=== PATIENT | male | born 1980 | race Caucasian/White ===

== ENCOUNTER 2016-11-15 01:33 | Inpatient (IN) | payer BC ==
[~2016-11-15] VITALS: Ht 188 cm; Wt 65.8 kg
[2016-11-15] VITALS (7 sets, daily range): BP systolic 93–103; RESP 16; TEMP 97.7–98.7; Ht 188 cm; Wt 65.8 kg
[2016-11-15] MEDS ORDERED: SALINE FLUSH 10 ML FLUSH PRN (02:00)
[2016-11-15] MEDS ORDERED: PHARMACY TO DOSE LEVAQUIN IV SCH ×2 (02:00→02:10)
[2016-11-15] MEDS ORDERED: ONDANSETRON 4 MG VIAL IV PRN (02:00)
[2016-11-15] MEDS: SODIUM CHLORIDE 0.9% 1,000 ML IV SCH ×3 (04:32→23:27)
[2016-11-15] MEDS: MORPHINE 2 MG/ML SYR IV PRN ×4 (04:42→23:27)
[2016-11-15] MEDS: SODIUM CHLORIDE 0.9% FLUSH BAG 500 ML IV SCH (05:18)
[2016-11-15] MEDS: LEVOFLOXACIN 750 MG/150 ML 150 ML IV SCH (05:51)
[2016-11-15] MEDS: METRONIDAZOLE 500MG/100ML 100 ML IV SCH ×4 (07:39→23:23)
[2016-11-15] MEDS: SALINE FLUSH 10 ML FLUSH SCH ×2 (07:40→20:00)
[2016-11-15] MEDS ORDERED: Flu Vaccine Quadrivalent 60 MCG/0.5 ML IM.VACC ONE (08:00)
[2016-11-15] MEDS: AZATHIOPRINE 50 MG TAB PO SCH (08:59)
[2016-11-15] MEDS: METHYLPRED SOD SUCC 40 MG VIAL IV SCH ×2 (08:59→20:45)
[2016-11-15] MEDS: PANTOPRAZOLE 40 MG VIAL IV SCH (10:00)
[2016-11-15] MEDS ORDERED: ACETAMINOPHEN 325 MG TAB PO PRN (12:10)
[2016-11-15] MEDS ORDERED: SERTRALINE 100 MG TAB PO SCH (21:00)
[2016-11-16] MEDS: SODIUM CHLORIDE 0.9% FLUSH BAG 500 ML IV SCH (00:40)
[2016-11-16 03:32] VITALS: BP_SYST 95; RESP 16; TEMP 97.9
[2016-11-16] MEDS: METRONIDAZOLE 500MG/100ML 100 ML IV SCH (06:14)
[2016-11-16 07:00] VITALS: BP_SYST 99; RESP 16; TEMP 97.7
[2016-11-16] MEDS: SALINE FLUSH 10 ML FLUSH SCH (07:47)
[2016-11-16] MEDS: AZATHIOPRINE 50 MG TAB PO SCH (08:32)
[2016-11-16] MEDS: METHYLPRED SOD SUCC 40 MG VIAL IV SCH (08:32)
[2016-11-16] MEDS: MORPHINE 2 MG/ML SYR IV PRN (08:33)
[2016-11-16] MEDS: LEVOFLOXACIN 750 MG/150 ML 150 ML IV SCH (08:36)
[2016-11-16] MEDS: PANTOPRAZOLE 40 MG VIAL IV SCH (09:43)
[2016-11-16] MEDS: SODIUM CHLORIDE 0.9% 1,000 ML IV SCH (10:12)
[2016-11-16] MEDS ORDERED: OXYCODONE 5 MG TAB PO PRN (10:40)
[2016-11-16 11:00] VITALS: BP_SYST 100; RESP 16; TEMP 97.7
[2016-11-16 15:00] VITALS: BP_SYST 115; RESP 16; TEMP 97.6
[2016-11-16 17:54] VITALS: BP_SYST 115; RESP 16; TEMP 97.6
[2016-11-16] MEDS ORDERED: MISSING DOSE XX ONE (18:05)
[2016-11-18] MEDS ORDERED: PANTOPRAZOLE 40 MG TAB PO SCH (07:00)
== END 2016-11-16 18:52 | disposition home or self-care (01) | DRG 387 ==
LOC: 2NO 04:08 → ENPENDDIS 04:08
PROVIDERS: ADMIT Internal Medicine; ATTEND Internal Medicine
DX: K50.90 Crohn's disease, unspecified, without complications (principal); F32.9 Major depressive disorder, single episode, unspecified; K52.9 Noninfective gastroenteritis and colitis, unspecified; E86.0 Dehydration; F41.9 Anxiety disorder, unspecified; M54.9 Dorsalgia, unspecified; R10.9 Unspecified abdominal pain; F17.200 Nicotine dependence, unspecified, uncomplicated
CPT/HCPCS: 80053; 81003; 85025; 87040; 87045; 87046; 87493; 94799; 99222